=== PATIENT | male | born 1975 | race Two or more races ===

== ENCOUNTER 2024-07-26 23:08 | Emergency (ER) | payer OTHER ==
[~2024-07-26] VITALS: Ht 175.3 cm; Wt 112.9 kg
[2024-07-26] MEDS ORDERED: DIPHENHYDRAMINE HCL 50 MG/ML VIAL 1ML IM STA (23:36)
[2024-07-27] MEDS ORDERED: ZYRTEC10 MG PO (00:02)
== END 2024-07-27 00:53 | disposition home or self-care (01) ==
LOC: ER 23:10
DX: R21 Rash and other nonspecific skin eruption (principal); T78.40XA Allergy, unspecified, initial encounter; E03.8 Other specified hypothyroidism
CPT/HCPCS: 96372; 99282; J1200